=== PATIENT | male | born 1965 | race Caucasian/White ===

== ENCOUNTER 2022-04-24 20:20 | Emergency (ER) | payer MEDICAID, SELFPAY ==
[2022-04-24 20:31] VITALS: BP 161/106; PULSE 90; RESP 16; TEMP 36.8; O2SAT 98; BMI 22.9
--- NOTE | 2022-04-24 20:39 | CT_ITS ---
PROCEDURE INFORMATION: Exam: CT Head Without Contrast Exam date and time: 04/24/2022 8:53 PM Age: 56 years old Clinical indication: Pain; Headache; Additional info: Sudden onset of headache TECHNIQUE: Imaging protocol: Computed tomography of the head without contrast. Radiation optimization: All CT scans at this facility use at least one of these dose optimization techniques: automated exposure control; mA and/or kV adjustment per patient size (includes targeted exams where dose is matched to clinical indication); or iterative reconstruction. Other protocol: This patient has received [address] and 0 known cardiac nuclear medicine studies in the 12 months prior to the current study. COMPARISON: CT SINUS WO CON 04/24/2022 8:49 PM FINDINGS: Brain: Normal. No hemorrhage. Unremarkable white matter. No mass effect. Cerebral ventricles: No ventriculomegaly. Paranasal sinuses: Visualized sinuses are unremarkable. No fluid levels. Mastoid air cells: Visualized mastoid air cells are well aerated. Orbital cavities: Right eye globe prosthesis is noted. Bones/joints: Unremarkable. No acute fracture. Soft tissues: Unremarkable. IMPRESSION: No acute intracranial abnormality
--- NOTE | 2022-04-24 20:41 | CT_ITS ---
PROCEDURE INFORMATION: Exam: CT Maxillofacial Without Contrast, Sinus Exam date and time: 04/24/2022 8:49 PM Age: 56 years old Clinical indication: Pain; Headache; Additional info: Sudden onset of headache TECHNIQUE: Imaging protocol: CT Maxillofacial without contrast. Focus on the sinuses. Radiation optimization: All CT scans at this facility use at least one of these dose optimization techniques: automated exposure control; mA and/or kV adjustment per patient size (includes targeted exams where dose is matched to clinical indication); or iterative reconstruction. Other protocol: This patient has received [address] and 0 known cardiac nuclear medicine studies in the 12 months prior to the current study. COMPARISON: No relevant prior studies available. FINDINGS: Frontal sinuses: Normal. No air-fluid levels. Ethmoid sinuses: There is moderate diffuse mucosal thickening in the bilateral ethmoid air cells Sphenoid sinuses: Normal. No air-fluid levels. Maxillary sinuses: Moderate mucosal thickening in the left maxillary sinus producing occlusion of the left ostiomeatal complex. Right maxillary sinus and ostiomeatal complex are clear. Nasal cavity: There is moderate leftward nasal septal deviation Orbital cavities: Right eye globe prosthesis noted. Bones/joints: No acute fracture Soft tissues: Unremarkable. IMPRESSION: Findings of chronic bilateral ethmoid and left maxillary sinusitis
--- NOTE | 2022-04-24 20:47 | PC.NURSE ---
pt over to CT
[2022-04-24 20:55] LABS: Basophils # 0.1 K/mm3 (0-0.2); Basophils % 0.9 % (0.1-2.0); Eosinophils # 0.2 K/mm3 (0.0-0.4); Eosinophils % 2.5 % (0.1-12.0); Hematocrit 45.7 % (42.0-52.0); Hemoglobin 15.4 g/dL (14.1-18.0); Lymphocytes # 1.9 K/mm3 (0.7-4.5); Lymphocytes % 20.8 % (10-50); Mean Corpuscular HGB Conc 33.7 g/dL (31.8-35.4); Mean Corpuscular Hemoglobin 30.1 pg (27.0-31.2); Mean Corpuscular Volume 89.3 fl (80-94); Mean Platelet Volume 7.1 fl (7.4-10.4); Monocytes # 0.6 K/mm3 (0.1-1.0); Monocytes % 6.5 % (1.7-9.3); Neutrophils # 6.3 K/mm3 (1.8-7.8); Neutrophils % 69.3 % (37.0-80.0); Platelet Count 246 K/mm3 (142-424); Red Blood Count 5.12 M/mm3 (4.60-6.20); Red Cell Distribution Width 13.2 % (11.5-17.5); White Blood Count 9.1 K/mm3 (4.8-10.8)
[2022-04-24 20:59] LABS: Alanine Aminotransferase 20 U/L (12-78); Albumin Level 4.3 g/dl (3.5-5.0); Albumin/Globulin Ratio 1.5 (1.1-1.8); Alkaline Phosphatase 93 U/L (38-126); Aspartate Amino Transferase 27 U/L (17-59); Bilirubin,Total 0.4 mg/dl (0.2-1.3); Blood Urea Nitrogen 18 mg/dl (9-20); Calcium 9.1 mg/dl (8.4-10.2); Carbon Dioxide 25 mmol/L (22.0-30.0); Chloride 105 mmol/L (98-107); Creatinine Clearance Estimated 76 mL/min (50-200); Estimated Glomerular Filt Rate 69 ml/min (>60); GFR (African American) 83 ML/MIN (>60); Globulin 2.8 g/dL (1.3-3.2); Glucose 118 mg/dl (74-100); Potassium 3.8 mmoL/L (3.5-5.1); Total Protein,Serum 7.1 g/dl (6.3-8.2)
[2022-04-24 21:16] LABS: Procalcitonin 0.057 ng/mL (0.0-2.0)
--- NOTE | 2022-04-24 21:23 | HMH.EDHA ---
Discharge Plan Disposition Patient Disposition: Home, Self-Care Prescriptions Prescriptions: New prednisone [prednisone] 20 mg tablet 20 mg PO BID Qty: 10 0RF cephalexin [cephalexin] 500 mg capsule 500 mg PO TID Qty: 30 0RF Referrals Follow up/Referrals: Lion Galarza MD [Primary Care Provider] - See instructions Clinical Impressions Clinical Impression: Sinusitis Instructions Patient Instructions: DI for Sinusitis Discharge ED Provider: Michell (ED)Lion Headache HPI General Chief Complaint: Headache Stated Complaint: migraine, yuki Time Seen by Provider: 04/24/22 20:40 Mode of Arrival: Ambulatory Source of Information: Medical Record Limitations: No Limitations Description of Symptoms (Recalled from ER Triage Doc. 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 Advises he has taken OTC meds with no relief. History of Present Illness HPI Narrative: frontal evans and pressure sx over the last 2 days - no fever/rash or trauma - has prostetic rt eye - no focal neuro sx Complaint: headache Onset (ago): hour(s) Onset description: gradual Location: diffuse Severity: moderate Quality: aching and different than previous headaches Associated symptoms: none Related Data Previous Rx's Medication Instructions Recorded cephalexin 500 mg capsule 500 mg PO TID #30 caps 04/24/22 prednisone 20 mg tablet 20 mg PO BID #10 tabs 04/24/22 Allergies Allergy/AdvReac Type Severity Reaction Status Date / Time No Known Allergies Allergy Verified 04/24/22 20:38 [facility] History Hepatitis A Screen Attestation statement:: This patient has been screened for Hepatitis A risk factors. I have reviewed the patient's past medical history: Yes Social History Smoking Status: Never smoker [facility] Disclaimer: The information contained in this section may have been updated after the patient was seen, as this information can be updated by other users. Social History Smoking Status: Never smoker alcohol intake: former current occupational status: disabled Travel in the last 8 weeks: None ROS Obtained: Yes All systems reviewed & no additional complaints except as documented Physical Exam General General appearance: alert Head Head exam: normocephalic Eye Eye exam: Present other (prostetic rt eye) ENT ENT exam: Present mucous membranes moist Neck Neck exam: Absent trachea midline Respiratory Respiratory exam: Absent respiratory distress Cardiovascular Cardiovascular exam: Present regular rate Extremities Exam Extremities exam: Present full ROM Neurological Exam Neurological exam: Present alert, oriented X3, CN II-XII intact and other (gcs=15); Absent motor sensory deficit Psychiatric Psychiatric exam: Present normal affect Skin Skin exam: Absent rash Medical Decision Making Medical Records Medical records reviewed: Yes I reviewed the patient's medical records. Donavon Inquiry Pt receiving controlled substance: No Vital Signs: 04/24/22 20:31 Temperature 98.3 F Temperature Source Oral Pulse Rate [Right] 90 Respiratory Rate 16 Blood Pressure [Right Arm] 161/106 H Blood Pressure Mean [Right Arm] 124 Blood Pressure Source [Right Arm] Automatic Cuff Blood Pressure Position [Right Arm] Sitting 02 Sat by Pulse Oximetry 98 Oxygen Delivery Method Room Air Lab Data Lab results reviewed: Yes I reviewed the patient's lab results. Lab Results 04/24/22 20:42: WBC 9.1, RBC 5.12, Hgb 15.4, Hct 45.7, MCV 89.3, MCH 30.1, MCHC 33.7, RDW 13.2, Plt Count 246, MPV 7.1 L, Neut % (Auto) 69.3, Lymph % (Auto) 20.8, Weston % (Auto) 6.5, Eos % (Auto) 2.5, Baso % (Auto) 0.9, Neut # (Auto) 6.3, Lymph # (Auto) 1.9, Weston # (Auto) 0.6, Eos # (Auto) 0.2, Baso # (Auto) 0.1, ESR 13 04/24/22 20:42: Sodium 136, Pot
[2022-04-24 21:39] LABS: Anion Gap 9.8 mEq/L (5-15); Sodium 136 mmol/L (136-145)
[2022-04-24 21:57] LABS: Erythrocyte Sedimentation Rate 13 mm/hr (0-20)
[2022-04-24 22:16] VITALS: BP 126/79; PULSE 84; RESP 16; TEMP 36.8; O2SAT 98
[2022-04-24 22:18] VITALS: BP 126/79; PULSE 72; RESP 20
== END 2022-04-24 22:31 | disposition home or self-care (01) ==
PROVIDERS: Emergency Provider Emergency Medicine; PCP Emergency Medicine
DX: J01.90 Acute sinusitis, unspecified (principal)
CPT/HCPCS: 70450; 70486; 80053; 84145; 85025; 85651; 99285

== ENCOUNTER 2024-01-23 18:08 | Emergency (ER) | payer OTHER, SELFPAY ==
[2024-01-23 18:10] VITALS: BP 170/99; PULSE 103; RESP 20; TEMP 36.8; O2SAT 98; BMI 24.2
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
[2024-01-23] MEDS: METHOCARBAMOL 500MG TABLET 500 MG PO (18:38)
[2024-01-23] MEDS: diphenhydrAMINE 25MG CAPSULE 50 MG PO (18:38)
[2024-01-23 18:47] VITALS: BP 156/83; PULSE 89; RESP 18; TEMP 36.6; O2SAT 98
== END 2024-01-23 18:49 | disposition home or self-care (01) ==
PROVIDERS: Emergency Provider Emergency Medicine
DX: M79.10 Myalgia, unspecified site (principal); V89.2XXA Person injured in unspecified motor-vehicle accident, traffic, initial encounter
CPT/HCPCS: 99283

== ENCOUNTER 2024-07-12 06:44 | Emergency (ER) | payer BC, SELFPAY ==
[2024-07-12 06:46] VITALS: BP 142/99; PULSE 94; RESP 12; TEMP 36.9; O2SAT 99; BMI 23.6
[2024-07-12 07:00] VITALS: BP 148/97; PULSE 81; O2SAT 98
--- NOTE | 2024-07-12 07:00 | CT_ITS ---
FINAL REPORT TECHNIQUE: Thin section axial images were obtained through the cervical spine without contrast. Multiplanar reconstruction images were obtained from the axial data. Exam was performed using dose reduction techniques. CLINICAL HISTORY: Fall from 8 feet FINDINGS: There is no acute fracture or acute malalignment of the cervical spine. There is no evidence of unilateral or bilateral facet lock. Vertebral body height is preserved. No acute paraspinal abnormality is identified. There appears to be abnormal soft tissue along the left aryepiglottic fold, consider direct visualization. IMPRESSION: No acute osseous abnormality of the cervical spine. Abnormal soft tissue along the aryepiglottic fold, recommend direct visualization. Reviewed, Interpreted and Dictated by Vandana Gutierrez MD Transcribed by Rebeka Henry Authenticated and [facility]
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
--- NOTE | 2024-07-12 07:00 | XR_ITS ---
FINAL REPORT CLINICAL HISTORY: Fall, decreased ROM FINDINGS: RIGHT SHOULDER Three views demonstrate a nondisplaced fracture of the greater tuberosity. There is no dislocation. AC joint is intact. IMPRESSION: Nondisplaced fracture of the greater tuberosity of the right shoulder. Reviewed, Interpreted and Dictated by Vandana Gutierrez MD Transcribed by Rebeka Henry Authenticated and . [facility]
--- NOTE | 2024-07-12 07:00 | XR_ITS ---
FINAL REPORT CLINICAL HISTORY: Fall, right pelvis pain FINDINGS: RIGHT HIP 3 views of the right hip demonstrate no acute fracture or dislocation. The joint spaces appear normal. The visualized bony structures are well aligned. No soft tissue abnormality is seen. IMPRESSION: No acute bony abnormality. Reviewed, Interpreted and Dictated by Vandana Gutierrez MD Transcribed by Rebeka Henry Authenticated and [facility]
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
--- NOTE | 2024-07-12 07:04 | ED_ITS ---
Discharge Plan Disposition Patient Disposition: Home, Self-Care Condition: Good Prescriptions Prescriptions: New methocarbamol 750 mg tablet 750 mg PO QID Qty: 40 0RF lidocaine 5 % adhesive patch,medicated 1 patch topical DAILY Qty: 10 0RF Rx Instructions: leave on most painful area for up to 12 hrs No Action methocarbamol 750 mg tablet 750 mg PO Q6H PRN (Reason: muscle spasm) Qty: 20 0RF lidocaine 5 % adhesive patch,medicated 1 patch topical DAILY Qty: 30 0RF Rx Instructions: leave on most painful area for up to 12 hrs prednisone [prednisone] 20 mg tablet 20 mg PO BID Qty: 10 0RF cephalexin [cephalexin] 500 mg capsule 500 mg PO TID Qty: 30 0RF Referrals Follow up/Referrals: Latrell Aggarwal DO [Staff Physician] - See instructions (Call the Orthopedic Surgery office for follow-up at .) Provider,Referral, [Primary Care Provider] - See instructions Activity Restrictions/Add. Instructions Additional Instructions/Restrictions: Take Tylenol and ibuprofen every 6 hours over the next 3 to 4 days. Apply lidocaine patch to right ribs daily. You can take the Robaxin for muscle spasm up to 4 times per day. Wear the sling for pain relief. You can take it off to shower and as you feel comfortable. Apply ice pack to your shoulder for 20 minutes at a time and never directly on the skin. Please call the orthopedic surgery office for follow-up of your fracture. Clinical Impressions Clinical Impression: Fall (on)(from) incline, initial encounter, Rib pain on right side Fracture of head of humerus Qualifiers: Encounter type: initial encounter Fracture type: closed Laterality: right Qualified Code(s): S42.291A - Other displaced fracture of upper end of right humerus, initial encounter for closed fracture Stand Alone Forms Stand Alone Forms: Work/School Release Instructions Patient Instructions: DI for Fracture, How To Perform RICE (Rest, Ice, Compress, Elevate), How to Prevent Falls Print Language Print Language: Albanian Discharge ED Provider: Rolanda Briscoe General Adult HPI General Chief complaint: Fall Stated complaint: AO 07/11 1900 Fell off ladder, right side pain Time Seen by Provider: 07/12/24 06:50 Mode of Arrival: Ambulatory Source of Information: Patient Description of Symptoms (Recalled from ER Triage Doc. by RN): Pt ambulatory to ED with c/o 8-10 ft fall from a ladder around 7pm yesterday. Pt reports the ladder started to slide out from under him, so he jumped off and landed on his right side. Pt reports he also hit his forehead on the ground. Pt states he stood up and limped inside directly after the fall, then when waking up around 0400 this morning, had right rib, right shoulder, and right glute pain. there is a small abrasion noted to the forehead. Denies LOC. No blood-thinners or other prescription medications. GCS 15 History of Present Illness HPI narrative: Guanakito Gonsalez is a 59-year-old male with no known past medical history who presents after a fall. Patient states he was attempting to clean his gutters on a ladder yesterday evening at around 7 PM. Patient states the ladder began to fall but he was worried he would fall onto the grill and trash cans nearby so he jumped off. Patient states he fell primarily on the right side of his body. He also reports hitting his forehead. He denies taking blood thinners or aspirin daily. He denies LOC. Patient states he was able to get up and walk back in the house. This morning, he had significant pain when breathing on his right side, so he decided to come be evaluated. Patient denies numbness, paresthesias, weakness. Patient complains of pain in his right shoulder, right side and right posterior pelvis. Related Data Previous Rx's ?Medication ?Instructions ?Recorded cephalexin 500 mg capsule 500 mg PO TID #30 caps 04/24/22 prednisone 20 mg tablet 20 mg PO BID #10 tabs 04/24/22 lidocaine 5 % topical patch 1 patch topical DAILY #30 ea 01/23/24 methocarbamol 750 mg tablet 750 mg PO Q6H PRN muscle spasm #20 01/23/24 tabs lidocaine 5 % topical patch 1 patch topical DAILY #10 ea 07/12/24 methocarbamol 750 mg tablet 750 mg PO QID #40 tabs 07/12/24 Allergies Allergy/AdvReac Type Severity Reaction Status Date / Time No Known Allergies Allergy Verified 04/24/22 20:38 [facility] Disclaimer: The information contained in this section may have been updated after the patient was seen, as this information can be updated by other users. Social History (Updated 04/24/22 @ 22:13 by Lion Galarza MD (ED)) Smoking Status: Current every day smoker alcohol intake: former current occupational status: disabled Travel in the last 8 weeks?: None Have you lived/traveled outside US in past 30 days?: No Contact w/someone who lives/traveled outside US past 30 days?: No Exposure to someone with infectious disease in past 14 days?: No Do you have a fever (greater than 100.4 F or 38 C)?: No Have you tested positive for COVID-19?: No Exposed to someone with COVID-19 in past 14 days?: No Do you have a sore throat?: No Do you have a cough?: No Do you have any weakness?: No Do you have any diarrhea?: No Are you experiencing any unusual bleeding?: No Do you have any muscle aches/pain?: No Do you have any abdominal pain?: No Are you experiencing loss of taste or smell?: No ROS Obtained: Yes All systems reviewed & no additional complaints except as documented Physical Exam General General appearance: alert and in no apparent distress Head Head exam: normocephalic, normal inspection and other (Abrasion to forehead) Eye Eye exam: Present normal appearance, PERRL and EOMI ENT ENT exam: Present normal exam, normal oropharynx, mucous membranes moist and normal external ear exam Neck Neck exam: Present normal inspection, full ROM and trachea midline; Absent meningismus or lymphadenopathy Chest Chest inspection: Present normal inspection, symmetric chest wall rise and tenderness (Right lateral rib pain) Respiratory Respiratory exam: Present normal lung sounds bilaterally; Absent respiratory distress Cardiovascular Cardiovascular exam: Present regular rate and normal rhythm; Absent JVD Abdominal Exam Abdominal exam: Present soft; Absent distention, tenderness or guarding Extremities Exam Extremities exam: Present normal inspection, full ROM (Unable to abduct right shoulder), tenderness (Tenderness to right scapula, right shoulder) and normal capillary refill; Absent calf tenderness Back Exam Back exam: Present normal inspection; Absent tenderness Neurological Exam Neurological exam: Present alert and oriented X3 Psychiatric Psychiatric exam: Present normal affect and normal mood Skin Skin exam: Present warm, dry, intact and normal color Medical Decision Making Medical Records Screening: Per USPSTF and CDC recommendations, given the prevalence of disease in our region, it is our hospital?s policy to screen for HIV and viral Hepatitis for all patients aged 18 and over and those with ongoing risk factors. Donavon Inquiry Pt receiving controlled substance: No Vital Signs: 07/12/24 06:46 07/12/24 07:00 Temperature 98.4 F Temperature Source Oral Pulse Rate 81 Pulse Rate [Right Radial] 94 H Respiratory Rate 12 Blood Pressure 148/97 H Blood Pressure [Left Arm] 142/99 H Blood Pressure Mean [Left Arm] 113 Blood Pressure Source [Left Arm] Automatic Cuff Blood Pressure Position [Left Arm] Sitting 02 Sat by Pulse Oximetry 99 98 Oxygen Delivery Method Room Air Orders (Tests/Meds): ED MEDICATIONS Discontinued Medications Generic Name Dose Route Start Last Admin Trade Name Freq PRN Reason Stop Dose Admin Acetaminophen 1,000 mg 07/12/24 07:02 07/12/24 07:11 Acetaminophen 500mg Tab PO 07/12/24 07:03 1,000 mg ONCE ONE Administration Ibuprofen 800 mg 07/12/24 07:03 07/12/24 07:12 Ibuprofen 800 Mg Tablet PO 07/12/24 07:04 800 mg ONCE ONE Administration Methocarbamol 1,000 mg 07/12/24 07:03 07/12/24 07:12 Methocarbamol 500mg Tablet PO 07/12/24 07:04 1,000 mg ONCE ONE Administration ORDERS Category Date Time Status CT cervical spine wo con Stat Cat Scan 07/12/24 07:[address] chest wo con Stat Cat Scan 07/12/24 07:[address] head/brain wo con Stat Cat Scan 07/12/24 07:00 Completed Shoulder XR right miminum 2 views [XR shoulder RT min Exams 07/12/24 07:00 Completed 2V] Stat XR hip RT 2-3V w/pelvis Stat Exams 07/12/24 07:00 Completed Medical Decision Narrative: In summary, this is a 59-year-old male presenting after a fall. Differential diagnosis includes but is not limited to, ICH, C-spine fracture/malalignment, scapular fracture, rib fracture, pneumothorax, pelvic or hip fracture, among others. Based on patient's vital signs, exam findings laboratory evaluation was considered and ultimately not performed. To better evaluate concern for intracranial pathology, spinal pathology as well as additional fractures, CT head, CT C-spine, CT chest without contrast, XR right shoulder and XR pelvis/right hip ordered. Patient's symptoms managed with Tylenol, ibuprofen, Robaxin. I personally reviewed patient's pelvis/right hip XR which did not demonstrate any fractures or dislocation. XR right shoulder demonstrated humeral head fracture, which is consistent with a rotator cuff injury and patient's inability to abduct his right arm. On my interpretation of patient's CT head, no intracranial hemorrhage or skull fracture noted. Patient CT C-spine personally reviewed by me and did not demonstrate any fracture or malalignment. CT chest without IV contrast did not demonstrate any visible rib fractures on the right side. Based on image findings, patient will be referred to orthopedic surgery. Pat ient placed in a sling for additional symptom relief. Patient recommended to contact the orthopedic surgery clinic for follow-up. Patient given a work excuse. Patient prescribed lidocaine patches as well as Robaxin. Patient given detailed instructions on multimodal pain control, RICE, return precautions. Patient discharged in stable condition. Rolanda Briscoe MD Critical Care Critical Care Time Critical Care Time: No
[2024-07-12] MEDS: ACETAMINOPHEN 500MG TAB 1000 MG PO (07:11)
[2024-07-12] MEDS: IBUPROFEN 800 MG TABLET PO (07:12)
[2024-07-12] MEDS: METHOCARBAMOL 500MG TABLET 1000 MG PO (07:12)
[2024-07-12 09:14] VITALS: BP 148/97; PULSE 81; RESP 16; TEMP 36.9
== END 2024-07-12 09:15 | disposition home or self-care (01) ==
PROVIDERS: Emergency Provider Student in an Organized Health Care Education/Training Program
DX: R07.81 Pleurodynia (principal); S42.291A Other displaced fracture of upper end of right humerus, initial encounter for closed fracture; W11.XXXA Fall on and from ladder, initial encounter
CPT/HCPCS: 70450; 71250; 72125; 73030; 73502; 99285

== ENCOUNTER 2024-07-31 05:32 | Emergency (ER) | payer BC, SELFPAY ==
[2024-07-31 05:40] VITALS: BP 162/125; PULSE 82; RESP 16; TEMP 36.6; O2SAT 98; BMI 23.6
--- NOTE | 2024-07-31 05:40 | ED_ITS ---
Discharge Plan Disposition Chief Complaint: Extremity Injury, Upper Prescriptions Prescriptions: No Action methocarbamol 750 mg tablet 750 mg PO Q6H PRN (Reason: muscle spasm) Qty: 20 0RF lidocaine 5 % adhesive patch,medicated 1 patch topical DAILY Qty: 30 0RF Rx Instructions: leave on most painful area for up to 12 hrs methocarbamol 750 mg tablet 750 mg PO QID Qty: 40 0RF lidocaine 5 % adhesive patch,medicated 1 patch topical DAILY Qty: 10 0RF Rx Instructions: leave on most painful area for up to 12 hrs prednisone [prednisone] 20 mg tablet 20 mg PO BID Qty: 10 0RF cephalexin [cephalexin] 500 mg capsule 500 mg PO TID Qty: 30 0RF Referrals Follow up/Referrals: Latrell Aggarwal DO [Staff Physician] - See instructions Provider,Referral, [Primary Care Provider] - See instructions Activity Restrictions/Add. Instructions Additional Instructions/Restrictions: Please call Dr. Aggarwal's office and follow-up for further assessment. Please take 1 g of Tylenol and 600 mg of ibuprofen every 6 hours as needed for pain. Please follow-up with your primary care provider. Please return to the emergency department if you develop any new or worsening symptoms or become concerned for your health. Clinical Impressions Clinical Impression: Fracture of head of humerus Qualifiers: Encounter type: subsequent encounter Fracture type: closed Laterality: right Print Language Print Language: Urdu Discharge ED Provider: Bronson Escalona General Adult HPI General Chief complaint: Extremity Injury, Upper Stated complaint: right rotator cuff pain Time Seen by Provider: 07/31/24 05:35 History of Present Illness HPI narrative: 59-year-old male presents for continued pain in the right arm. He was seen here for a fall earlier this month and was noted to have a humeral head fracture concerning for rotator cuff injury. He has not followed up with Ortho to this point. He reports he cannot take a muscle relaxers because they make him loopy. He can continue to have significant pain. He has been using a sling and has been keeping it rested. Denies any significant swelling throughout the limb, primarily just in the area of the upper arm. Related Data Previous Rx's ?Medication ?Instructions ?Recorded cephalexin 500 mg capsule 500 mg PO TID #30 caps 04/24/22 prednisone 20 mg tablet 20 mg PO BID #10 tabs 04/24/22 lidocaine 5 % topical patch 1 patch topical DAILY #30 ea 01/23/24 methocarbamol 750 mg tablet 750 mg PO Q6H PRN muscle spasm #20 01/23/24 tabs lidocaine 5 % topical patch 1 patch topical DAILY #10 ea 07/12/24 methocarbamol 750 mg tablet 750 mg PO QID #40 tabs 07/12/24 Allergies Allergy/AdvReac Type Severity Reaction Status Date / Time No Known Allergies Allergy Verified 04/24/22 20:38 [facility] Disclaimer: The information contained in this section may have been updated after the patient was seen, as this information can be updated by other users. Social History (Updated 04/24/22 @ 22:13 by Lion Galarza (ED)MD) Smoking Status: Current every day smoker alcohol intake: former current occupational status: disabled Travel in the last 8 weeks?: None Have you lived/traveled outside US in past 30 days?: No Contact w/someone who lives/traveled outside US past 30 days?: No Exposure to someone with infectious disease in past 14 days?: No Do you have a fever (greater than 100.4 F or 38 C)?: No Have you tested positive for COVID-19?: No Exposed to someone with COVID-19 in past 14 days?: No Do you have a sore throat?: No Do you have a cough?: No Do you have any weakness?: No Do you have any diarrhea?: No Are you experiencing any unusual bleeding?: No Do you have any muscle aches/pain?: No Do you have any abdominal pain?: No Are you experiencing loss of taste or smell?: No ROS Obtained: Yes All systems reviewed & no additional complaints except as documented Physical Exam General General appearance: alert and in no apparent distress Head Head exam: atraumatic and normocephalic Eye Eye exam: Present normal appearance, PERRL and EOMI ENT ENT exam: Present normal oropharynx and normal external ear exam Neck Neck exam: Present normal inspection and full ROM Chest Chest inspection: Present normal inspection and symmetric chest wall rise; Absent tenderness Respiratory Respiratory exam: Present normal lung sounds bilaterally; Absent respiratory distress Cardiovascular Cardiovascular exam: Present regular rate and normal rhythm Abdominal Exam Abdominal exam: Present soft; Absent distention, tenderness or guarding Extremities Exam Extremities exam: Present edema (Bruising tenderness and some edema to the right upper arm); Absent normal inspection or joint swelling Back Exam Back exam: Present normal inspection; Absent tenderness Neurological Exam Neurological exam: Present alert and oriented X3; Absent motor sensory deficit Psychiatric Psychiatric exam: Present normal affect and normal mood Skin Skin exam: Present warm, dry and normal color Lymphatic Lymphatic Findings: no adenopathy Medical Decision Making Medical Records Medical records reviewed: Yes I reviewed the patient's medical records. Screening: Per USPSTF and CDC recommendations, given the prevalence of disease in our region, it is our hospital?s policy to screen for HIV and viral Hepatitis for all patients aged 18 and over and those with ongoing risk factors. Donavon Inquiry Pt receiving controlled substance: No Donavon was queried for this patient: No Vital Signs: 07/31/24 05:40 07/31/24 05:45 07/31/24 06:04 Temperature 97.8 F 98.6 F 98.5 F Temperature Source Oral Oral Oral Pulse Rate 92 H 78 Pulse Rate [Left] 82 Respiratory Rate 16 18 16 Blood Pressure 165/125 H 165/105 H Blood Pressure [Right Arm] 162/125 H Blood Pressure Mean [Right Arm] 137 Blood Pressure Source Automatic Cuff Automatic Cuff Blood Pressure Source [Right Arm] Automatic Cuff Blood Pressure Position [Right Arm] Sitting 02 Sat by Pulse Oximetry 98 95 Oxygen Delivery Method Room Air Room Air Room Air Lab Data Lab results reviewed: Yes I reviewed the patient's lab results. Orders (Tests/Meds): ED MEDICATIONS Discontinued Medications Generic Name Dose Route Start Last Admin Trade Name Freq PRN Reason Stop Dose Admin Ketorolac Tromethamine 15 mg 07/31/24 05:58 07/31/24 06:06 Ketorolac 30mg/Ml Vial IM 07/31/24 05:59 15 mg ONCE ONE Administration ORDERS Category Date Time Status POCUS Point of Care (ER Only) Stat Exams 07/31/24 06:00 Ordered Medical Decision Narrative: [history+ROS]. History was obtained via interactive discussion with []. On arrival, patient is [afebrile, hemodynamically stable, satting appropriately, alert, oriented x4, GCS 15], moving all extremities spontaneously. Full physical exam performed and significant for [Other relevant findings] Differential includes but is not limited to []. Patient was given [] for symptomatic management and correction of underlying abnormalities. Workup initiated including []. On re-evaluation, patient [remains afebrile, HD stable.] Laboratory workup independently interpreted by me and significant for []. Imaging independently interpreted by me and significant for []. See radiology read for full review of final results. EKG independently interpreted by me and significant for []. [] was considered, but deemed unnecessary due to []. Given patient history, exam and workup, patient's presentation most likely represents []. Procedures Risk/Benefits of Procedure(s) Were Explained: Yes Limited Ultrasound Indication:: Limited DVT ultrasound Indication: Limited compression ultrasonography of the right upper extremity was performed to evaluate for non-compressibility of the deep veins in the patient. The ultrasound was performed with the following indications, as noted in the H&P: Right arm pain Identified structures: Right [Ulnar vein, radial vein, cephalic vein, basilic vein, axillary vein.] Findings: Upper extremity: Right UV not performed Right RV: Not performed Right Cephalic vein: Good compressibility Right Basilic vein: Good compressibility Right Axillary vein: Good compressibility Impression: Normal limited DVT ultrasound This study was performed by me, and I personally interpreted all images/videos. Based on my clinical judgement, these images were adequate and did not neces sitate further imaging. Images were saved to permanent archive The study was technically adequate CPT: 70681-08-GR This study was performed by ct, and I personally interpreted all images/videos. Based on my clinical judgement, these images were adequate and did not necessitate further imaging. Critical Care Critical Care Time Critical Care Time: No
[2024-07-31 05:45] VITALS: BP 165/125; PULSE 92; RESP 18; TEMP 37; O2SAT 95
[2024-07-31 06:04] VITALS: BP 165/105; PULSE 78; RESP 16; TEMP 36.9; O2SAT 100
[2024-07-31] MEDS: KETOROLAC 30MG/ML VIAL 15 MG IM (06:06)
== END 2024-07-31 06:21 | disposition home or self-care (01) ==
LOC: ER 05:40
PROVIDERS: Emergency Provider Emergency Medicine
DX: S42.293D Other displaced fracture of upper end of unspecified humerus, subsequent encounter for fracture with routine healing (principal); W19.XXXD Unspecified fall, subsequent encounter
CPT/HCPCS: 96372; 99283; J1885

== ENCOUNTER 2024-12-23 16:15 | Outpatient (CLI) | payer BC, SELFPAY ==
--- NOTE | 2024-12-23 16:18 | MR_ITS ---
PROCEDURE INFORMATION: Exam: MR Right Upper Extremity Joint Without Contrast; Shoulder Exam date and time: 12/23/2024 4:28 PM Age: 59 years old Clinical indication: Pain; Shoulder; Right; Additional info: RT shoulder pain TECHNIQUE: Imaging protocol: Magnetic resonance imaging of the right upper extremity without contrast. Exam focused on the shoulder. COMPARISON: CR XR SHOULDER RT MIN 2V 07/12/2024 7:07 AM FINDINGS: Bones/joints: Serpiginous increased T2 signal consistent with minimally displaced fracture of the greater tuberosity. Glenoid cartilage is unremarkable. Mild diffuse thinning of the humeral head cartilage. Glenoid labrum: Minimally displaced labral tear of the anterior mid/inferior labrum, with mild periosteal stripping. The posterior labrum is intact. Supraspinatus tendon: [id number] tendinosis of the supraspinatus tendon, with articular and bursal sided fraying. Fluid signal around the footplate attachment is suggestive of partial-thickness avulsion. Infraspinatus tendon: [id number] tendinosis of the infraspinatus tendon. Moderate edema and partial-thickness tearing of several of the fibers noted at the footplate attachment. Subscapularis tendon: Moderate tendinosis of the most superior fibers of the subscapularis tendon. Low-grade partial-thickness tearing as it crosses over the bicipital groove. Teres minor tendon: Unremarkable. No evidence of tear. Tendon of biceps brachii: Mild medial subluxation of the biceps tendon as it transitions from extrinsic glottis intra-articular. Mild tendinosis of the intra-articular biceps tendon. Glenohumeral ligaments: Unremarkable. Soft tissues: Mild thickening of the axillary pouch. IMPRESSION: 1. Minimally displaced fracture of the greater tuberosity. 2. Minimally displaced labral tear of the anterior mid/inferior labrum, with mild periosteal stripping. 3. Findings suspicious for mild contusions of the distal infraspinatus and supraspinatus tendons, with partial avulsive tears at the footplate attachment of the tendons. 4. Mild contusion and partial-thickness tearing of the supraspinatus tendon superior fibers most prominently as it crosses over the bicipital groove. Mild medial subluxation of the tendon as it transitions from intra-articular intra-articular.
== END 2024-12-23 23:59 | disposition home or self-care (01) ==
LOC: RAD 16:16
PROVIDERS: PCP Nurse Practitioner; Visit Provider Internal Medicine Cardiovascular Disease
DX: S42.251A Displaced fracture of greater tuberosity of right humerus, initial encounter for closed fracture (principal); S43.491A Other sprain of right shoulder joint, initial encounter; S43.081A Other subluxation of right shoulder joint, initial encounter; M75.111 Incomplete rotator cuff tear or rupture of right shoulder, not specified as traumatic; R93.6 Abnormal findings on diagnostic imaging of limbs
CPT/HCPCS: 73221

== ENCOUNTER 2025-02-10 08:35 | Outpatient (RCR) | payer BC, SELFPAY | END 2025-02-10 23:59 | disposition home or self-care (01) | LOC: OT 08:35 | PROVIDERS: PCP Nurse Practitioner; Visit Provider Orthopaedic Surgery | DX: M75.101 Unspecified rotator cuff tear or rupture of right shoulder, not specified as traumatic (principal) | CPT/HCPCS: 97165 ==